=== PATIENT | male | born 1985 | race Hispanic/Latino ===

== ENCOUNTER → 2020-05-10 | Outpatient (CLI) | payer OTHER | LOC: US 08:54 | PROVIDERS: ATTEND Internal Medicine Gastroenterology | DX: K74.60 Unspecified cirrhosis of liver (principal) ==

== ENCOUNTER → 2020-11-21 | Outpatient (CLI) | payer BC | LOC: US 10:28 | PROVIDERS: ATTEND Internal Medicine Gastroenterology | DX: K80.20 Calculus of gallbladder without cholecystitis without obstruction (principal); Z87.19 Personal history of other diseases of the digestive system | CPT/HCPCS: 76705 ==

== ENCOUNTER → 2020-11-29 | Day surgery (SDC) | payer BC, OTHER ==
[~2020-11-29] MED LIST: FENTANYL CITRATE/PF 100MCG/2 ML INJ ONE; LACTULOSE20 GM/30 M PO; LIDOCAINE HCL 2% LOCAL INJ 5 ML SDV VIAL INJ ONE; MIDAZOLAM HCL 2 MG/2 ML VIAL ONE; PROPOFOL IV EMULSION 10 MG/ML 20 ML VIAL ONE
[2020-11-29 08:47] VITALS: BP 135/83
== END | disposition home or self-care (01) ==
LOC: OR 06:35
PROVIDERS: ATTEND Internal Medicine Gastroenterology
DX: K74.60 Unspecified cirrhosis of liver (principal); I85.10 Secondary esophageal varices without bleeding; K29.50 Unspecified chronic gastritis without bleeding; B96.81 Helicobacter pylori [H. pylori] as the cause of diseases classified elsewhere; K26.9 Duodenal ulcer, unspecified as acute or chronic, without hemorrhage or perforation; K76.6 Portal hypertension; K31.89 Other diseases of stomach and duodenum; K21.9 Gastro-esophageal reflux disease without esophagitis; E11.9 Type 2 diabetes mellitus without complications; M06.9 Rheumatoid arthritis, unspecified; F41.9 Anxiety disorder, unspecified; F32.9 Major depressive disorder, single episode, unspecified
CPT/HCPCS: 43239; J2001; J2250; J2704; J3010

== ENCOUNTER 2021-01-13 08:39 | Emergency (ER) | payer OTHER ==
[~2021-01-13] VITALS: Ht 182.9 cm; Wt 145.1 kg
[~2021-01-13 08:39] MED LIST changes: -FENTANYL CITRATE/PF 100MCG/2 ML INJ ONE; -LIDOCAINE HCL 2% LOCAL INJ 5 ML SDV VIAL INJ ONE; -MIDAZOLAM HCL 2 MG/2 ML VIAL ONE; -PROPOFOL IV EMULSION 10 MG/ML 20 ML VIAL ONE
[2021-01-13] MEDS ORDERED: CASIRIVIMAB/IMDEVIMAB 600 MG INJ IV ONE (11:15)
[2021-01-13] MEDS ORDERED: CASIRIVIMAB/IMDEVIMAB 600 MG in SODIUM CHLORIDE 0.9% 100 ML IV ONE (12:30)
== END 2021-01-13 12:54 | disposition home or self-care (01) ==
LOC: ER 08:49
DX: U07.1 COVID-19 (principal); R51.9 Headache, unspecified; F10.21 Alcohol dependence, in remission; K70.30 Alcoholic cirrhosis of liver without ascites; D84.9 Immunodeficiency, unspecified
CPT/HCPCS: 99284; U0002

== ENCOUNTER → 2021-03-12 | Outpatient (CLI) | payer OTHER ==
[~2021-03-12] MED LIST changes: +ALBUMIN 25% 12.5GM 50ML 0 ML IV ONE
[2021-03-12 08:59] LABS: BASOPHILS % 0.5 % (0.0-1.0); EOSINOPHILS # (AUTO) 0.1 (0.0-0.4); EOSINOPHILS % 1.2 % (0.0-6.0); HEMATOCRIT 41.5 % (38.2-49.6); HEMOGLOBIN 13.6 g/dL (14.0-18.0); LYMPHOCYTES # (AUTO) 1.4 (1.0-3.2); LYMPHOCYTES % 33.1 % (18.0-39.1); MEAN CORPUSCULAR HEMOGLOBIN 31.2 pg (28-32); MEAN CORPUSCULAR HGB CONC 32.8 g/dL (31-35); MEAN CORPUSCULAR VOLUME 95.2 fL (81-99); MONOCYTES # (AUTO) 0.4 (0.2-0.8); MONOCYTES % 10.5 % (4.4-11.3); NEUTROPHILS # (AUTO) 2.2 (2.1-6.9); NEUTROPHILS % 54.5 % (38.7-80.0); PLATELET COUNT 53 x10e3/uL (140-360); RED BLOOD COUNT 4.36 x10e6/uL (4.3-5.7)
[2021-03-12 09:15] LABS: INR 1.16
[2021-03-12 09:25] LABS: ALBUMIN/GLOBULIN RATIO 0.9 (0.8-2.0); ANION GAP 11.8 mmol/L (8-16); CALCIUM 8.4 mg/dL (8.4-10.2); CREATININE, SERUM 0.75 mg/dL (0.72-1.25); POTASSIUM 3.8 mmol/L (3.5-5.1)
== END ==
LOC: US 08:25
PROVIDERS: ATTEND Internal Medicine Gastroenterology
DX: K72.90 Hepatic failure, unspecified without coma (principal)
CPT/HCPCS: 36415; 76705; 80053; 85025; 85610; 85730

== ENCOUNTER 2021-06-27 06:44 | Emergency (ER) | payer OTHER ==
[~2021-06-27] VITALS: Ht 182.9 cm; Wt 145.1 kg
[~2021-06-27 06:44] MED LIST changes: -ALBUMIN 25% 12.5GM 50ML 0 ML IV ONE
== END 2021-06-27 07:30 | disposition home or self-care (01) ==
LOC: ER 07:20
DX: B34.9 Viral infection, unspecified (principal); R05.9 Cough, unspecified; K76.9 Liver disease, unspecified; K21.9 Gastro-esophageal reflux disease without esophagitis
CPT/HCPCS: 99283